=== PATIENT | female | born 1935 | race Caucasian/White ===

== ENCOUNTER 2021-01-05 09:00 | Outpatient (CLI) | payer MEDICARE, BC | END 2021-01-05 09:01 | disposition home or self-care (01) | LOC: CSHMAMMO 09:00 | PROVIDERS: ATTEND Internal Medicine | DX: M81.0 Age-related osteoporosis without current pathological fracture (principal) | CPT/HCPCS: 77080 ==

== ENCOUNTER 2021-03-05 13:23 | Inpatient (IN) | payer MEDICARE, BC ==
[2021-03-05] MEDS ORDERED: Rocuronium Bromide 10 MG/ML (10ML VIAL) ONE (13:57)
[2021-03-05 14:29] LABS: #Monocytes 0.5 10x3/uL (0.0-1.1); #Neutrophils 13.5 10x3/uL (1.5-8.4); %Basophils 0.2 % (0.0-2.0); %Eosinophils 0.1 % (0.0-6.0); %Lymphocytes 2.3 % (18.0-47.0); %Monocytes 3.6 % (0.0-10.0); Hemoglobin 12.5 g/dL (12.0-15.5); Mean Corpuscular HGB CONC 33.1 g/dL (32.0-36.0); Mean Corpuscular Hemoglobin 29.8 pg (27.0-33.0); Mean Platelet Volume 9.7 fl (7.4-10.4); Platelet Count 377 10x3/uL (150-450); RBC Distribution Width 12.8 % (11.5-14.5); White Blood Cell (WBC) Count 14.6 10x3/uL (3.5-10.5)
[2021-03-05 14:44] LABS: ALT (SGPT) 10 U/L (8-55); AST (SGOT) 20 U/L (5-34); Albumin 3.6 g/dL (3.4-4.8); Alkaline Phosphatase 83 U/L (40-110); Anion Gap 16 mmol/L (10-20); BUN (Urea Nitrogen) 8 mg/dL (9.8-20.1); Bilirubin, Total 0.8 mg/dL (0.2-1.2); CK (CPK) 50 U/L (29-168); Calc. Creatinine Clearance 0 mL/min (70-130); Calcium 8.7 mg/dL (7.8-10.44); Carbon Dioxide 30 mmol/L (23-31); Chloride 98 mmol/L (98-107); Globulin 2.6 g/dL (2.4-3.5); Glucose 137 mg/dL (83-110); Potassium 3.1 mmol/L (3.5-5.1); Protein, Total 6.2 g/dL (5.8-8.1); Sodium 141 mmol/L (136-145)
[2021-03-05 14:53] LABS: Bilirubin Neg (Negative); Blood, Urine Negative (Negative); Clarity Clear (Clear); Glucose, Urine (Dipstick) Normal (Negative); Ketone, Urine 50 mg/dL (Negative); Leukocyte Negative (Negative); Nitrite Negative (Negative); Protein, Urine (Dipstick) Negative (Neg-Trace); Urobilinogen Normal mg/dL (Less than 2)
[2021-03-05 15:59] LABS: SARS-CoV-2 NAA Rapid Test Not Detected (NotDetected)
[2021-03-05 22:57] VITALS: BMI 16.2
[2021-03-05 23:14] VITALS: TEMP 98.1
[2021-03-05] MEDS ORDERED: Norepinephrine 8 MG/0.9% NS 250 ML IVPB SCH (23:15)
[2021-03-05] MEDS ORDERED: Sodium Chloride 0.9% 1,000 ML IV SCH (23:15)
[2021-03-06 00:21] LABS: Troponin I 0.126 ng/mL (< 0.028)
[2021-03-06 00:49] LABS: Actual Bicarbonate (HCO3a) 24.9 mEq/L (22-28); Base Excess (BEa) 5.1 mEq/L (-2.0 to +3.0); CO2 Tension 23.3 mmHg (35.0-45.0); Calcium, Ionized (arterial) 1.08 mmol/L (1.12-1.30); Carboxyhemoglobin (COHb) 0.3 gm% (0.0-3.0); Hemoglobin (Hb) 11.8 g/dL (12.0-16.0); O2 Tension (PaO2), arterial 156.4 mmHg (> 60.0); Potassium - ABG Lab 2.1 mmol/L (3.70-5.30); Puncture Site RRA; pH, Arterial 7.65 (7.35-7.45)
[2021-03-06 00:51] LABS: ALV-art Gradient 170.975 mmHg (0-20)
[2021-03-06] MEDS ORDERED: Electrolyte Replacement Protocol 1 EACH IVPB PRN (01:01)
[2021-03-06 01:04] LABS: PTT 50.4 sec (22.0-33.0); Prothrombin Time 84.8 sec (9.5-12.1)
[2021-03-06 01:07] LABS: INR-International Normal Ratio 8.5
[2021-03-06] MEDS: NS 0.9% w/ 40 MEQ KCL 1,000 ML IV SCH ×2 (01:08→11:29)
[2021-03-06] MEDS ORDERED: Acetaminophen 650 MG/20.3 ML UDCUP PO PRN (01:15)
[2021-03-06] MEDS ORDERED: Ventilator Sedation Protocol 1 EACH FS SCH (01:15)
[2021-03-06] MEDS ORDERED: Morphine 2 MG/ML VIAL SLOW IVP PRN (01:30)
[2021-03-06] MEDS ORDERED: DISCONTINUE PREVIOUS NARCOTIC PAIN MEDICATIONS AND BENZODIAZEPINES FS SCH (01:30)
[2021-03-06] MEDS ORDERED: Propofol 1,000 MG/100 ML VIAL IV PRN (01:30)
[2021-03-06] MEDS ORDERED: fentaNYL Citrate-0.9 % NaCl/PF 100 ML IVPB SCH (01:30)
[2021-03-06] MEDS ORDERED: Fentanyl BOLUS 250 ML IVPB PRN (01:30)
[2021-03-06] MEDS ORDERED: Lorazepam 2 MG/ML VIAL SLOW IVP PRN (01:30)
[2021-03-06] MEDS ORDERED: Propofol BOLUS 1,000 MG/100 ML VIAL IV PRN (01:30)
[2021-03-06] MEDS ORDERED: FLU VACC QS2021-22(65YR UP)/PF 240 MCG/0.7 ML SYRINGE IM ONE (03:15)
[2021-03-06 05:07] LABS: #Basophils 0.1 10x3/uL (0.0-0.2); #Monocytes 1.3 10x3/uL (0.0-1.1); #Neutrophils 13.5 10x3/uL (1.5-8.4); %Basophils 0.4 % (0.0-2.0); %Eosinophils 0.2 % (0.0-6.0); %Lymphocytes 8.3 % (18.0-47.0); %Monocytes 7.8 % (0.0-10.0); %Neutrophils 82.3 % (40.0-75.0); Anion Gap 13 mmol/L (10-20); BUN (Urea Nitrogen) 14 mg/dL (9.8-20.1); Calc. Creatinine Clearance 34 mL/min (70-130); Calcium 8.4 mg/dL (7.8-10.44); Carbon Dioxide 24 mmol/L (23-31); Chloride 112 mmol/L (98-107); Glucose 113 mg/dL (83-110); Magnesium 1.8 mg/dL (1.6-2.6); Mean Corpuscular HGB CONC 33.1 g/dL (32.0-36.0); Mean Corpuscular Hemoglobin 29.3 pg (27.0-33.0); Mean Corpuscular Volume 88.8 fl (81.6-98.3); Mean Platelet Volume 9.6 fl (7.4-10.4); Platelet Count 333 10x3/uL (150-450); RBC Distribution Width 12.7 % (11.5-14.5); Red Blood Cell (RBC) Count 4.09 10x6/uL (3.90-5.03); Sodium 147 mmol/L (136-145); White Blood Cell (WBC) Count 16.4 10x3/uL (3.5-10.5)
[2021-03-06 05:17] LABS: Potassium 2.4 mmol/L (3.5-5.1)
[2021-03-06] MEDS ORDERED: Magnesium 2 GM/50 ML 2 GM in Premix Bag 1 BAG IVPB SCH (05:30)
[2021-03-06] MEDS: Potassium Chloride 20 MEQ in Premix Bag 1 BAG IVPB SCH ×4 (05:39→12:57)
[2021-03-06 06:58] LABS: Actual Bicarbonate (HCO3a) 23.8 mEq/L (22-28); Base Excess (BEa) 4.1 mEq/L (-2.0 to +3.0); CO2 Tension 22.8 mmHg (35.0-45.0); Calcium, Ionized (arterial) 1.18 mmol/L (1.12-1.30); Carboxyhemoglobin (COHb) 0.3 gm% (0.0-3.0); Hemoglobin (Hb) 12.2 g/dL (12.0-16.0); O2 Tension (PaO2), arterial 198.3 mmHg (> 60.0); Potassium - ABG Lab 2.9 mmol/L (3.70-5.30); Puncture Site RRA; pH, Arterial 7.64 (7.35-7.45)
[2021-03-06 07:05] VITALS: BP 82/45
[2021-03-06 07:51] LABS: Actual Bicarbonate (HCO3a) 24.3 mEq/L (22-28); CO2 Tension 34.1 mmHg (35.0-45.0); Calcium, Ionized (arterial) 1.25 mmol/L (1.12-1.30); Carboxyhemoglobin (COHb) 0.3 gm% (0.0-3.0); Hemoglobin (Hb) 12.4 g/dL (12.0-16.0); O2 Tension (PaO2), arterial 107.7 mmHg (> 60.0); Potassium - ABG Lab 3.2 mmol/L (3.70-5.30); Puncture Site RRA; pH, Arterial 7.47 (7.35-7.45)
[2021-03-06 07:56] LABS: ALV-art Gradient 134.875 mmHg (0-20)
[2021-03-06] MEDS ORDERED: Famotidine/PF 20 mg/2ml Vial SLOW IVP SCH (09:00)
[2021-03-06] MEDS ORDERED: Pantoprazole 40 MG VIAL IVP SCH (09:00)
[2021-03-06 11:18] LABS: ALV-art Gradient 317.875 mmHg (0-20); Actual Bicarbonate (HCO3a) 28.2 mEq/L (22-28); Base Excess (BEa) -1.2 mEq/L (-2.0 to +3.0); CO2 Tension 71.7 mmHg (35.0-45.0); Calcium, Ionized (arterial) 1.26 mmol/L (1.12-1.30); Carboxyhemoglobin (COHb) 0.3 gm% (0.0-3.0); Hemoglobin (Hb) 12.8 g/dL (12.0-16.0); O2 Tension (PaO2), arterial 305.5 mmHg (> 60.0); Potassium - ABG Lab 3.6 mmol/L (3.70-5.30); Puncture Site RRA; pH, Arterial 7.21 (7.35-7.45)
[2021-03-06 11:21] LABS: Actual Bicarbonate (HCO3a) 22.5 mEq/L (22-28); CO2 Tension 37.8 mmHg (35.0-45.0); Calcium, Ionized (arterial) 1.22 mmol/L (1.12-1.30); Carboxyhemoglobin (COHb) 0.1 gm% (0.0-3.0); Hemoglobin (Hb) 12.8 g/dL (12.0-16.0); Potassium - ABG Lab 3.5 mmol/L (3.70-5.30); Puncture Site RBA; pH, Arterial 7.39 (7.35-7.45)
[2021-03-07] MEDS ORDERED: Famotidine/PF 20 mg/2ml Vial SLOW IVP SCH (09:00)
== END 2021-03-06 15:40 | disposition expired | DRG 64 ==
LOC: CSHERS 13:23 → CSHIMCU 22:17
PROVIDERS: ADMIT Family Medicine; ATTEND Hospitalist
PROC: 0BH17EZ Insertion of Endotracheal Airway into Trachea, Via Natural or Artificial Opening (ICD-10-PCS; principal; 2021-03-05)
PROC: 5A1935Z Respiratory Ventilation, Less than 24 Consecutive Hours (ICD-10-PCS; 2021-03-05)
PROC: 3E033XZ Introduction of Vasopressor into Peripheral Vein, Percutaneous Approach (ICD-10-PCS; 2021-03-05)
PROC: 0DH67UZ Insertion of Feeding Device into Stomach, Via Natural or Artificial Opening (ICD-10-PCS; 2021-03-05)
PROC: 3E0G76Z Introduction of Nutritional Substance into Upper GI, Via Natural or Artificial Opening (ICD-10-PCS; 2021-03-05)
DX: I61.9 Nontraumatic intracerebral hemorrhage, unspecified (principal); J96.00 Acute respiratory failure, unspecified whether with hypoxia or hypercapnia; G93.6 Cerebral edema; I48.20 Chronic atrial fibrillation, unspecified; R64 Cachexia; Z68.1 Body mass index [BMI] 19.9 or less, adult; E03.9 Hypothyroidism, unspecified; I95.9 Hypotension, unspecified; Z60.2 Problems related to living alone; Z66 Do not resuscitate; Z20.822 Contact with and (suspected) exposure to COVID-19; Z51.5 Encounter for palliative care; Z79.01 Long term (current) use of anticoagulants; Z87.891 Personal history of nicotine dependence; Z87.01 Personal history of pneumonia (recurrent); Z88.2 Allergy status to sulfonamides; Z90.710 Acquired absence of both cervix and uterus
CPT/HCPCS: 31500; 36415; 36416; 36600; 70450; 71045; 80048; 80053; 81003; 82550; 82805; 83735; 84443; 84484; 85025; 85610; 85730; 87086; 93005; 93010; 94002; 94003; 94760; C9113; J3475; J3480; J7050; S0028; U0002